=== PATIENT | male | born 2000 | race American Indian/Alaskan Native ===

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

== ENCOUNTER 2022-03-04 12:29 | Emergency (ER) | payer MEDICAID ==
[2022-03-04 14:39] VITALS: BP 97/46
== END 2022-03-04 15:30 | disposition left against medical advice (07) ==
LOC: ED 12:29
DX: M54.2 Cervicalgia (principal); M79.606 Pain in leg, unspecified; Z53.21 Procedure and treatment not carried out due to patient leaving prior to being seen by health care provider; V89.2XXA Person injured in unspecified motor-vehicle accident, traffic, initial encounter; Y93.89 Activity, other specified; Y92.89 Other specified places as the place of occurrence of the external cause; Y99.8 Other external cause status